=== PATIENT | male | born 2000 | race Caucasian/White ===

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

== ENCOUNTER 2020-01-25 11:11 | Emergency (ER) | payer OTHER, MEDICAID ==
[2020-01-25] MEDS ORDERED: KETOROLAC 60 MG/2 ML VIAL IM STA (11:39)
--- NOTE | 2020-01-25 11:43 | ED Physician Documentation ---
History of Present Illness - Stated complaint Stated Complaint: BACK PX - Chief complaint Chief Complaint: Trauma Ch/Bk - History obtained from History obtained from: Patient - History of Present Illness Timing: How many days ago (5) Pain level max: 7 Pain level now: 4 Radiates to: none - Additonal information Additional information: 19-year-old male presents to the emergency department for evaluation of left upper mid back pain. 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 However Thursday evening after work he began to notice a sharp pain in his left CVA area. He feels it is worse with movement. Has had no urinary changes denies hematuria or dysuria. no cough, no fevers. he has taken tylenol with minimal relief of pain. 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 No saddle anesthesia no loss of bowel or bladder function. Denies intravenous drug use. No history of cancer. No night sweats or weight loss Review of Systems Constitutional: denies: Fever, Chills Nose: denies: Rhinorrhea / runny nose, Foreign Body Throat: denies: Dental pain / toothache, Oral lesions / sores Cardiac: denies: Chest pain / pressure, Palpitations Respiratory: denies: Dyspnea, Cough GI: denies: Abdominal Pain, Abdominal Swelling, Nausea, Vomiting : denies: Dysuria, Frequency, Hesitancy, Hematuria Skin: denies: Rash, Lesions Musculoskeletal: reports: Back pain. denies: Joint pain, Extremity swelling Neurologic: denies: Generalized weakness, Focal weakness, Numbness, Difficulty speaking, Syncope, Seizure, Headache, Head injury, LOC Psychiatric: denies: Depressed, Suicidal PD PAST MEDICAL HISTORY - Past Medical History Cardiovascular: None Respiratory: None - Past Surgical History Past Surgical History: No HEENT: Tonsil/Adenoidectomy - Present Medications Home Medications: Ambulatory Orders Medication Instructions Recorded Confirmed Clotrimazole/Betamethasone Dip 1 applic TP BID #30 cream..g. 02/18/17 [Clotrimazole-Betamethasone Crm] Naproxen 375 mg PO BID #20 tablet 02/18/17 Ibuprofen [Motrin] 600 mg PO Q6H PRN #30 tab 01/25/20 - Allergies Allergies/Adverse Reactions: Allergies Allergy/AdvReac Type Severity Reaction Status Date / Time No Known Drug Allergies Allergy Verified 01/25/20 11:26 - Social History Does the pt smoke?: No Smoking Status: Never smoker Does the pt drink ETOH?: No Does the pt have substance abuse?: No - Immunizations Immunizations are current?: Yes - POLST Patient has POLST: No PD ED PE NORMAL - General General: Alert and oriented X 3, No acute distress, Well developed/nourished - HEENT HEENT: EOMI - Neck Neck: No bony TTP, No adenopathy - Cardiac Cardiac: RRR, No murmur - Respiratory Respiratory: No respiratory distress - Abdomen Abdomen: Normal bowel sounds, Soft - Back Back: No spinal TTP, Other (tenderness with palpation left CVA/lateral ribs. no ecchymosis/crepitus. Full ROM of lower lumbar spine. ). No: No CVA TTP - Derm Derm: Normal color, Warm and dry, No rash - Extremities Extremities: No deformity, Normal ROM s pain, No edema - Neuro Neuro: Alert and oriented X 3, virtual customer assistant 2-12 intact Eye Opening: Spontaneous Motor: Obeys Commands Verbal: Oriented GCS Score: 15 Results - Vitals Vitals: Vital Signs - 24 hr 01/25/20 11:24 Temperature 37.1 C Heart Rate 83 Respiratory 18 Rate Blood Pressure 150/101 H O2 Saturation 100 Oxygen O2 Source Room air - Labs Labs: Laboratory Tests 01/25/20 12:31 Urine Color YELLOW Urine Clarity CLEAR Urine pH 8.0 H Ur Specific Lillie 1.015 Urine Protein NEGATIVE Urine Glucose (UA) NEGATIVE Urine Ketones NEGATIVE Urine Occult Blood NEGATIVE Urine Nitrite NEGATIVE Urine Bilirubin NEGATIVE Urine Urobilinogen 0.2 (NORMAL) Ur Leukocyte Esterase NEGATIVE Ur Microscopic Review NOT INDICATED Urine Culture Comments NOT INDICATED - Rads (name of study) CXR Radiology: Final report received (no acute process) PD MEDICAL DECISION MAKING - ED course Complexity details: reviewed results, re-evaluated patient, considered di fferential, d/w patient ED course: - 19-year-old male presents to the emergency department with 5 days of left upper back pain in the CVA and lateral rib area. He has no history of similar. Pain does not radiate. 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 - Given location of pain we have proceeded with a urinalysis to eval for occult hematuria as well as a chest x-ray to ensure no findings suspicious for pneumonia or occult rib fracture - X-rays without any acute findings. In addition his urine shows no infection. My suspicion for nephrolithiasis is low. patient was given Toradol here in the emergency department with moderate relief of pain. We will plan to prescribe ibuprofen on discharge. Departure - Departure Disposition: Home, Self Care Clinical Impression: Lower thoracic back pain Condition: Stable Record reviewed to determine appropriate education?: Yes Instructions: ANTI-INFLAMMATORY, General, ED Neck Back Pain General Prescriptions: Ibuprofen [Motrin] 600 mg PO Q6H PRN #30 tab PRN Reason: Pain Comments: I hope that you are feeling better soon. The x-ray of your chest and back did not show anything worrisome. Your urine also showed no blood. It is possible that you have pulled a muscle in your back though I am not sure that this occurred at work. I would like you to take ibuprofen as prescribed for 3 to 4 days. This should help with pain and inflammation in general. If your pain is markedly better you may return to work on Thursday. If not you do need to see a primary care doctor in follow-up. Your blood pressure is noted to be elevated today in the emergency department. This can be common in pain. However I would advise you to have a recheck with her primary care doctor in 1 to 2 weeks.
--- NOTE | 2020-01-25 12:11 | XRAY Report ---
PROCEDURE: Chest 2 View X-Ray INDICATIONS: cough TECHNIQUE: 2 view(s) of the chest. COMPARISON: None. FINDINGS: Surgical changes and devices: None. Lungs and pleura: No pleural effusions or pneumothorax. Lungs are clear. Mediastinum: Mediastinal contours are normal. Heart size is normal. Bones and chest wall: No suspicious bony abnormalities. Soft tissues appear unremarkable. IMPRESSION: No acute process. Reviewed by: Nani Gaitan MD on 01/25/2020 12:10 PM PDT Approved by: Nani Gaitan MD on 01/25/2020 12:10 PM PDT Station ID: [id number]
[2020-01-25 12:39] LABS: BILIRUBIN,URINE NEGATIVE (NEGATIVE); GLUCOSE, URINE (UA) NEGATIVE (NEGATIVE); KETONES,URINE (UA) NEGATIVE (NEGATIVE); LEUKOCYTE ESTERASE, URINE NEGATIVE (NEGATIVE); NITRITE,URINE NEGATIVE (NEGATIVE); OCCULT BLOOD,URINE NEGATIVE (NEGATIVE); PROTEIN,URINE NEGATIVE (NEGATIVE); UROBILINOGEN,URINE 0.2 (NORMAL) E.U./dL (NORMAL)
[2020-01-25 12:41] LABS: CLARITY,URINE CLEAR (CLEAR)
[2020-01-25 13:19] VITALS: BP 126/70
== END 2020-01-25 13:25 | disposition home or self-care (01) ==
LOC: ED 11:11
DX: M54.6 Pain in thoracic spine (principal); R03.0 Elevated blood-pressure reading, without diagnosis of hypertension
CPT/HCPCS: 1040M; 71046; 81003; 96372; 99284; 81001; 87086